=== PATIENT | male | born 1950 | race Caucasian/White ===

== ENCOUNTER 2017-07-08 12:16 | Inpatient (IN) | payer MEDICARE, OTHER ==
[2017-07-08] VITALS (7 sets, daily range): BP systolic 92–145; BP diastolic 60–82
[~2017-07-08] VITALS: Ht 190.5 cm; Wt 66.3 kg
[2017-07-08 12:44] LABS: HEMOGLOBIN 10.3 g/dl (14.0-18.0); MEAN CELL VOLUME 73.8 fl (80.0-94.0); MEAN CORPUSCULAR HGB CONC 31.2 g/dl (33.0-37.0); MEAN PLATELET VOLUME 9.7 fl (9.6-12.3); NUCLEATED RED BLOOD CELL 0.2 10*3/uL (0.0-0.0); NUCLEATED RED BLOOD CELL 0.6 % (0.0-0.0); PLATELET COUNT AUTOMATED 374 10*3/uL (130-400); RED BLOOD COUNT 4.47 10*6/uL (4.50-5.90); RED CELL DISTRI WIDTH 21.7 % (0-14.5); WHITE BLOOD COUNT 27.2 10*3/uL (4.8-10.8)
[2017-07-08 13:01] LABS: ALBUMIN 3.4 gm/dl (3.1-4.5); ALKALINE PHOSPHATASE 285 U/L (45-117); BUN 19 mg/dl (7-24); CHLORIDE 100 mmol/L (98-107); CREATININE 0.96 mg/dL (0.70-1.30); POTASSIUM 4.3 mmol/L (3.5-5.1); SGOT/AST 41 IU/L (3-35); SGPT/ALT 49 U/L (12-78); SODIUM 139 mmol/L (136-145); TOTAL PROTEIN 7.1 gm/dL (6.4-8.2)
[2017-07-08 13:06] LABS: TROPONIN I < 0.015 ng/ml (<0.045)
[2017-07-08 13:07] LABS: ACANTHOCYTES FEW; MICROCYTOSIS SLIGHT; OVALOCYTES FEW; PLATELET SUFFICIENCY NORMAL (NORMAL); POLYCHROMASIA SLIGHT; TOTAL CELLS COUNTED 100 #CELLS
[2017-07-08 13:16] LABS: INTERNATIONAL NORM RATIO 1.2 (2.0-3.5)
--- NOTE | 2017-07-08 13:25 | NUR ---
BACITRACIN AND BAND AID TO SKIN TEAR RT KNEE. PAMELA JESUS RN
[2017-07-08] MEDS ORDERED: AMITRIPTYLINE10 MG PO (14:39)
[2017-07-08] MEDS ORDERED: AXIRON30 MG/1.1 TD (14:41)
[2017-07-08] MEDS ORDERED: MARINOL2.5 M1 PO (14:44)
[2017-07-08] MEDS ORDERED: CHEWABLE-VITE1 EAC1 PO (14:45)
[2017-07-08] MEDS ORDERED: TOPROL XL25 MG PO (14:46)
[2017-07-08] MEDS ORDERED: ZOFRAN4 MG PO (14:47)
[2017-07-08] MEDS ORDERED: VITAMIN B-12500 MC3 SL (14:47)
[2017-07-08] MEDS ORDERED: MAGIC MOUTHWASH PO (14:50)
[2017-07-08] MEDS ORDERED: Carafate1 GM PO (14:51)
--- NOTE | 2017-07-08 14:54 | NUR ---
MED REC UPDATED WITH PATIENT WITH PATIENT & WHO IS ALERT & ORIENTED. THE ONLY DOSE HE IS NOT SURE OF IS THE MARINOL.
--- NOTE | 2017-07-08 15:11 | NUR ---
A 67, admitted to , under the services of KITTY Shaffer DO with a diagnosis of SYNCOPY & COLLAPSE. Chief complaint is STARTED WITH STOMACH CRAMPING - ATTEMPTED TO AMBULATE TO BATHROOM AND PASSED OUT +LOC/FELL. Patient arrived via stretcher from ER. Monitor applied. Initial assessment completed. Vital signs taken and recorded. KITTY SHAFFER DO notified of admission to the unit. Orders received. See assessment for past medical history, medications and allergies. Patient and/or family oriented to unit. [facility] visitation policy reviewed. Clothing/patient valuable form completed. [facility] ACCESSED RAJEEV SIDDIQUI
[2017-07-08 19:13] LABS: BILIRUBIN NEGATIVE (NEGATIVE); BLOOD NEGATIVE (NEGATIVE); CLARITY CLEAR (CLEAR); COLOR YELLOW (YELLOW); GLUCOSE TRACE (NEGATIVE); KETONE TRACE (NEGATIVE); LEUKO ESTERASE NEGATIVE (NEGATIVE); NITRITE NEGATIVE (NEGATIVE); SPECIFIC GRAVITY 1.025 (1.005-1.030)
[2017-07-08 19:21] LABS: WBC 0-2 wbc/hpf (0-5)
--- NOTE | 2017-07-08 19:46 | NUR ---
Shift chart check completed.24 HR chart check completed.
--- NOTE | 2017-07-08 20:08 | NUR ---
ON ASSESSMENT PATIENT IS HAVING HS SNACK, SAYS HE EATS FREQUENT SMALL AMOUNTS OF FOOD. ROOM AIR. NO C/O OF LIGHTHEADNESS. NO DYSRHYTHMIAS. SEE ALL APPROPRIATE INTERVENTIONS.
--- NOTE | 2017-07-08 22:05 | NUR ---
CARAFATE FOR INDIGESTION "I DEAL WITH THIS ON A DAILY BASIS".
--- NOTE | 2017-07-08 22:42 | NUR ---
NAYAN BEASLEY FOR "DRY HEAVES".
--- NOTE | 2017-07-08 23:15 | NUR ---
NOW RESTING WITH HIS EYES SHUT. NO DYSRHYTHMIAS.
[2017-07-09] VITALS: BP 128/71
--- NOTE | 2017-07-09 05:59 | NUR ---
HAS SLEPT FAIRLY WELL WITH NO DYSRHYTHMIAS. HE REFUSED AM PROTONIX. "THOSE DON'T WORK FOR ME".
[2017-07-09 06:28] LABS: HEMATOCRIT 29.4 % (42.0-52.0); HEMOGLOBIN 9.3 g/dl (14.0-18.0); MEAN CELL VOLUME 73.3 fl (80.0-94.0); MEAN CORPUSCULAR HGB 23.2 pg (27.0-31.0); MEAN CORPUSCULAR HGB CONC 31.6 g/dl (33.0-37.0); MEAN PLATELET VOLUME 10.4 fl (9.6-12.3); NUCLEATED RED BLOOD CELL 0.1 10*3/uL (0.0-0.0); NUCLEATED RED BLOOD CELL 0.7 % (0.0-0.0); PLATELET COUNT AUTOMATED 356 10*3/uL (130-400); RED BLOOD COUNT 4.01 10*6/uL (4.50-5.90); RED CELL DISTRI WIDTH 21.2 % (0-14.5); WHITE BLOOD COUNT 18.1 10*3/uL (4.8-10.8)
[2017-07-09 06:41] LABS: BUN 14 mg/dl (7-24); CHLORIDE 104 mmol/L (98-107); CHOLESTEROL 110 mg/dL (<200); CREATININE 0.68 mg/dL (0.70-1.30); HDL CHOLESTEROL 48 mg/dl (40-60); LDL CHOLESTEROL 50 mg/dL (9-159); MAGNESIUM 2.3 mg/dL (1.5-2.1); PHOSPHOROUS 2.4 mg/dL (2.5-4.9); SODIUM 140 mmol/L (136-145); TRIGLYCERIDES 58 mg/dl (<150); VLDL CHOLESTEROL 12 mg/dL (6-40)
[2017-07-09 06:47] LABS: INTERNATIONAL NORM RATIO 1.2 (2.0-3.5)
[2017-07-09 07:36] LABS: TOTAL CELLS COUNTED 100 #CELLS
[2017-07-09 07:37] LABS: ACANTHOCYTES MODERATE; MICROCYTOSIS MODERATE; PLATELET SUFFICIENCY NORMAL (NORMAL); SCHISTOCYTES FEW; TARGET CELLS FEW
[2017-07-09 08:00] VITALS: BP 124/67
--- NOTE | 2017-07-09 08:16 | NUR ---
PT GIVEN IV ZOFRAN PER PRN ORDER PRIOR TO GETTING HIS BREAKFAST TRAY. NAUSEA HAS IMPROVED PER PT. WILL CONTINUE TO MONITOR. DENIES ANY PAIN/DISCOMFORT AT THIS TIME. VSS. CALL LIGHT WITHIN REACH.
[2017-07-09 08:26] LABS: VITAMIN D, 25-HYDROXY 34.3 ng/mL (30-100)
--- NOTE | 2017-07-09 08:30 | NUR ---
Acid Washer Operator in to talk to patient. Patient states lives at [address] with HIS . There are 11 steps in the home. Physician: DR RAY IN [place] Pharmacy: [facility] [place] Home health services: NONE Patient's level of ADLs: INDEPENDENT Patient has working utilities: YES DME: NONE Follow-up physician's appointment after d/c: WILL BE MADE PRIOR TO DC Does patient want to access PORTAL?: Discharge plan HOME. JEFFERY HUGHES DENIES DC NEEDS
--- NOTE | 2017-07-09 10:46 | NUR ---
ECHO BEING PERFORMED AT THE BEDSIDE.
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
[2017-07-09 12:00] VITALS: BP 117/70
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
--- NOTE | 2017-07-09 15:45 | NUR ---
CARAFATE EFFECTIVE PER PT. WILL CONTINUE TO MONITOR.
[2017-07-09 16:00] VITALS: BP 112/73
--- NOTE | 2017-07-09 18:03 | NUR ---
Discharge instructions reviewed with patient/family. Patient receptive and verbalizes understanding. Follow-up care arranged. Written instructions given to patient/family. CABRERA MOREL.
== END 2017-07-09 18:03 | disposition home or self-care (01) | DRG 314 ==
LOC: ED 12:16 → EDHOLD 13:40 → 4E 13:40
PROVIDERS: Emergency Medicine; Internal Medicine; ADMIT Emergency Medicine
DX: I95.9 Hypotension, unspecified (principal); E43 Unspecified severe protein-calorie malnutrition; C16.9 Malignant neoplasm of stomach, unspecified; E83.41 Hypermagnesemia; E83.39 Other disorders of phosphorus metabolism; K22.2 Esophageal obstruction; Z68.1 Body mass index [BMI] 19.9 or less, adult; R55 Syncope and collapse; I95.89 Other hypotension; K59.03 Drug induced constipation; R53.82 Chronic fatigue, unspecified; M08.90 Juvenile arthritis, unspecified, unspecified site; I10 Essential (primary) hypertension; D50.9 Iron deficiency anemia, unspecified; R00.1 Bradycardia, unspecified; R10.84 Generalized abdominal pain; R74.0 Nonspecific elevation of levels of transaminase and lactic acid dehydrogenase [LDH]; Z90.49 Acquired absence of other specified parts of digestive tract; Z83.79 Family history of other diseases of the digestive system; Z82.49 Family history of ischemic heart disease and other diseases of the circulatory system; Z79.899 Other long term (current) drug therapy; T50.995A Adverse effect of other drugs, medicaments and biological substances, initial encounter; Y92.89 Other specified places as the place of occurrence of the external cause